=== PATIENT | female | born 1965 | race Caucasian/White ===

== ENCOUNTER 2021-06-13 13:47 | Inpatient (IN) | payer OTHER ==
[~2021-06-13] VITALS: Ht 154.9 cm; Wt 105.2 kg
[2021-06-13] MEDS ORDERED: LOSARTAN-HCTZ1 EAC1 PO (15:00)
[2021-06-13] MEDS ORDERED: [UNRECOGNIZED DRUG - OTHER] PO (15:01)
[2021-06-13] MEDS ORDERED: CYMBALTA60 MG PO (15:01)
[2021-06-17] MEDS ORDERED: FOLIC ACID1 MG (16:18)
[2021-06-17] MEDS ORDERED: DICLOFENAC SOD100 MG (16:18)
[2021-06-17] MEDS ORDERED: METHOTREXATE2.5 MG (16:19)
[2021-06-19] MEDS ORDERED: INTEGRA PLUS C1 EACH PO (06:24)
[2021-06-19] MEDS ORDERED: BACTRIM DS TAB1 EACH PO (06:24)
[2021-06-19] MEDS ORDERED: XARELTO10 MG PO (06:24)
[2021-06-19] MEDS ORDERED: OXYC1TAB9 PO (06:24)
== END 2021-06-19 13:00 | DRG 470 ==
LOC: SURG 06-17 11:05 → O/R 06-17 11:05 → SURH 06-17 12:57 → SURG 06-18 00:38
PROVIDERS: ADMIT Orthopaedic Surgery Sports Medicine; ATTEND Orthopaedic Surgery Sports Medicine
PROC: 0SRC0J9 Replacement of Right Knee Joint with Synthetic Substitute, Cemented, Open Approach (ICD-10-PCS; principal; 2021-06-17 14:30)
DX: M17.11 Unilateral primary osteoarthritis, right knee (principal)